=== PATIENT | female | born 1960 | race Caucasian/White ===

== ENCOUNTER → 2020-02-07 08:16 | Outpatient (CLI) | payer MEDICAID | END | disposition home or self-care (01) | LOC: D.US 08:00 | PROVIDERS: ATTEND Surgery | DX: R10.9 Unspecified abdominal pain (principal) ==

== ENCOUNTER 2020-03-21 06:29 | Day surgery (SDC) | payer MEDICAID ==
[~2020-03-21] VITALS: Ht 157.5 cm; Wt 77.1 kg
[2020-03-21 07:41] LABS: EOSINOPHILS 1.8 % (0-7); HEMOGLOBIN 15.3 g/dL (12-16); IMMATURE GRANULOCYTES 0.1 % (0-5); LYMPHOCYTES 27.9 % (15-50); MCH 29.8 pg (26.0-34.0); MCV 87.5 fL (80.0-100.0); MEAN PLATELET VOLUME 10.8 fL (7.4-10.4); MONOCYTES 5.7 % (2-11); NEUTROPHILS 63.5 % (40-80); PLATELET COUNT 219 10x3/uL (130-400); RBC 5.14 10x6/uL (4.00-5.40); RDW 13.6 % (11.5-14.5); WBC 7.2 10x3/uL (4.8-10.8)
[2020-03-21 07:48] LABS: CALC OSMOLALITY 279 mosm/kg (275-300); CALCIUM 9.5 mg/dL (8.5-10.1); CARBON DIOXIDE 24.5 mmol/L (21.0-32.0); CHLORIDE - SERUM 103 mmol/L (98-107); CREATININE - SERUM 0.6 mg/dL (0.6-1.3); GLUCOSE 119 mg/dL (74-106); POTASSIUM - SERUM 4.2 mmol/L (3.5-5.1); SODIUM 140 mmol/L (136-145); UREA NITROGEN 13 mg/dL (7-18); eGFR NON AFRICAN AMERICAN > 90 mL/min (90-120)
[2020-03-21] MEDS ORDERED: NORVASC5 MG PO (07:49)
[2020-03-21] MEDS ORDERED: ZOCOR10 MG PO (07:49)
[2020-03-21 08:03] VITALS: BP 145/83; Ht 157.5 cm; Wt 77.1 kg
[2020-03-21] MEDS ORDERED: HYDROCODON-ACE1 EA10 PO (10:10)
--- NOTE | 2020-03-21 11:27 | NUR ---
1105 SPOUSE AT BEDSIDE.
--- NOTE | 2020-03-22 12:56 | OP ---
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 Gallstones. 2. Hypertension. 3. Hypercholesterolemia. POSTOPERATIVE DIAGNOSES: 1. Gallstones. 2. Hypertension. 3. Hypercholesterolemia. PROCEDURE: Laparoscopic cholecystectomy. SURGEON: Adrian Adkins MD REPORT OF PROCEDURE: The patient's abdomen was prepped and draped in sterile fashion. A cutdown was made on the superior aspect of the umbilicus, 0 Vicryls were placed in the fascia bilaterally and the fascia was incised with a 15-blade. I then bluntly entered the peritoneal cavity and placed a 12-mm Harlan port. Under direct visualization, a 5 mm trocar was placed in the epigastrium and 2 more 5-mm trocars were placed in right subcostal region. The gallbladder was grasped and elevated. The cystic artery and cystic duct were dissected free and these were clipped proximally and distally and ligated in standard fashion. The gallbladder was then taken off the liver bed using electrocautery and placed into the right upper quadrant. Any bleeding from the liver bed was then treated with electrocautery. The ports and insufflation were then removed and the gallbladder was taken out through the umbilicus. The gallbladder was noted to have a large stone present within it and there were no signs grossly of a porcelain gallbladder. The umbilical fascia was then closed with interrupted 0 Vicryls times 3. The wounds were then irrigated out with normal saline and infused with 10 mL of 0.25% Marcaine with epinephrine. The skin incisions were all closed with subcutaneous 5-0 Monocryl and dressed appropriately. COMPLICATIONS: None. CONDITION: Stable. ANESTHESIA: General endotracheal and local. BLOOD LOSS: Minimal. 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 [address] [place] [address]
== END 2020-03-21 14:27 | disposition home or self-care (01) ==
LOC: D.OPS 06:29
PROVIDERS: ATTEND Surgery
DX: K80.80 Other cholelithiasis without obstruction (principal); I10 Essential (primary) hypertension; E78.00 Pure hypercholesterolemia, unspecified; K82.8 Other specified diseases of gallbladder